=== PATIENT | female | born 1980 | race Hispanic/Latino ===

== ENCOUNTER 2018-01-15 10:23 | Emergency (ER) | payer BC ==
[2018-01-15 10:24] VITALS: BMI 28.8
[2018-01-15 10:30] VITALS: O2SAT 98
[2018-01-15 10:33] VITALS: BP 122/72; RESP 20; TEMP 98.1
[2018-01-15 10:40] VITALS: PULSE 68
--- NOTE | 2018-01-15 10:41 | ED PDOC ---
Upper Extremity Pain/Injury Time Seen by Provider: 01/15/18 10:25 Chief Complaint (Nursing): Abnormal Skin Integrity Chief Complaint (Provider): Abnormal Skin Integrity History Per: Patient History/Exam Limitations: no limitations Additional Complaint(s): 38 year old female with medical history of kidney stones, presents to the emergency department with a complaint of right breast pain and redness while breast feeding earlier today. Patient gave through vaginal delivery without complication. Denied any fever or chills. PMD: none provided Past Medical History Reviewed: Historical Data, Nursing Documentation, Vital Signs Vital Signs: Last Vital Signs Temp 98.1 F 01/15/18 10:33 Pulse 69 01/15/18 10:33 Resp 20 01/15/18 10:33 BP 122/72 01/15/18 10:33 Pulse Ox 98 01/15/18 10:33 - Medical History PMH: Denies: No Chronic Diseases, Chronic Kidney Disease Other PMH: hepatoportal sclerosis - Surgical History Surgical History: Cholecystectomy Denies: No Surg Hx - Family History Family History: States: Unknown Family Hx - Social History Current smoker - smoking cessation education provided: No Alcohol: None Drugs: Denies - Home Medications Home Medications: Ambulatory Orders Medication Instructions Recorded Cephalexin [Keflex] 500 mg PO QID #40 capsule 01/15/18 - Allergies Allergies/Adverse Reactions: Allergies Allergy/AdvReac Type Severity Reaction Status Date / Time ciprofloxacin Allergy RASH Verified 05/25/16 14:23 Review of Systems ROS Statement: Except As Marked, All Systems Reviewed And Found Negative Constitutional: Negative for: Fever, Chills Cardiovascular: Positive for: Other (right breast pain and redness) Physical Exam - Reviewed Nursing Documentation Reviewed: Yes Vital Signs Reviewed: Yes - Physical Exam Appears: Positive for: Well, Non-toxic, No Acute Distress Cardiovascular/Chest: Positive for: Regular Rate, Rhythm, Other (surrounding erythema to right breast (6 o'clock) with slightly blocked duct). Negative for: Edema (or palpable abscess) Respiratory: Positive for: Normal Breath Sounds. Negative for: Decreased Breath Sounds, Respiratory Distress Neurologic/Psych: Positive for: Alert (x3), Oriented - ECG O2 Sat by Pulse Oximetry: 98 (RA) Pulse Ox Interpretation: Normal Medical Decision Making Medical Decision Making: Initial Impression: Right breast pain ro mastitis Initial Plan: * Keflex 500mg PO Time: 1039 --Upon provider evaluation, patient is medically stable and requires no further treatment in the ED at this time. Patient will be discharged home with Rx for Keflex 500mg and advised warm compress to affected area. Counseling was provided and all questions were answered regarding diagnosis and need for follow up with [facility] in 2 days. There is agreement to discharge plan. Return if symptoms persist or worsen. Clinical Impression: Mastitis Scribe Attestation: Documented by Samina Gage, acting as a scribe for Leandro Gomez MD. Provider Scribe Attestation: All medical record entries made by the Scribe were at my direction and personally dictated by me. I have reviewed the chart and agree that the record accurately reflects my personal performance of the history, physical exam, medical decision making, and the department course for this patient. I have also personally directed, reviewed, and agree with the discharge instructions and disposition. Disposition - Clinical Impression Clinical Impression: Mastitis - Patient ED Disposition Is Patient to be Admitted: No Counseled Patient/Family Regarding: Diagnosis, Need For Followup - Disposition Disposition: Routine/Home Disposition Time: 11:39 Condition: IMPROVED Additional Instructions: follow up with your wreath inspector in 2 days for reevaluation continue warm compresses and continue breast feeding return to ED with any worsening or concerning symptoms Prescriptions: Cephalexin [Keflex] 500 mg PO QID #40 capsule Instructions: Mastitis (DC) Forms: Sighter (Marshallese)
== END 2018-01-15 11:00 | disposition home or self-care (01) ==
LOC: H.ER 10:23
DX: N61.0 Mastitis without abscess (principal)